=== PATIENT | female | born 1960 | race Two or more races ===

== ENCOUNTER 2020-08-23 08:00 | Inpatient (IN) | payer OTHER ==
[~2020-08-23] VITALS: Ht 162.6 cm; Wt 85.3 kg
[2020-08-23] MEDS ORDERED: ZOLOFT100 MG PO (11:49)
[2020-08-23] MEDS ORDERED: PEPCID AC10 MG PO (11:50)
[2020-08-23] MEDS ORDERED: TOPAMAX50 MG PO (11:50)
[2020-08-23] MEDS ORDERED: CLONAZEPAM2 M1 PO (11:50)
[2020-08-23] MEDS ORDERED: RESTORIL7.5 MG PO (11:50)
== END 2020-08-31 13:21 | disposition home or self-care (01) | DRG 627 ==
LOC: SURH 08-27 08:00 → O/R 08-30 10:50 → SURH 08-30 15:32
PROVIDERS: ADMIT Surgery; ATTEND Surgery
PROC: 0GTK0ZZ Resection of Thyroid Gland, Open Approach (ICD-10-PCS; principal; 2020-08-30 11:00)
DX: C73 Malignant neoplasm of thyroid gland (principal); E04.1 Nontoxic single thyroid nodule